=== PATIENT | male | born 1975 | race Caucasian/White ===

== ENCOUNTER 2020-07-06 10:45 | Emergency (ER) | payer OTHER, SELFPAY ==
[2020-07-06 10:56] VITALS: BP 119/86; PULSE 83; RESP 18; TEMP 36.8; O2SAT 99; BMI 25.8
--- NOTE | 2020-07-06 11:47 | ED.BACK ---
HPI - Back Pain/Injury General Chief Complaint: Back Pain/Injury Stated Complaint: R LEG PAIN Time Seen by Provider: 07/06/20 11:47 History of Present Illness HPI Narrative: Patient complains of right-sided low back pain radiating to the right foot, no numbness no weakness no changes to bowel or bladder It started after lifting some heavy pipe at work 2 weeks ago and has been waxing and waning since and yesterday pain became more severe and he comes to the ER Related Data Previous Rx's Medication Instructions Recorded cyclobenzaprine 10 mg tablet 10 mg PO TID PRN #10 tab 06/26/20 acetaminophen 500 mg PO Q8H PRN #30 tab 07/06/20 ibuprofen 600 mg PO Q6H PRN #20 tab 07/06/20 oxycodone 5 mg PO Q6H PRN #20 cap 07/06/20 prednisone 60 mg PO DAILY 4 Days #12 tab 07/06/20 Allergies Allergy/AdvReac Type Severity Reaction Status Date / Time penicillin V Allergy Unknown hives Verified 08/24/19 00:00 Penicillins [PCN] Allergy Unknown UNKNOWN Unverified 12/07/19 19:09 Review of Systems Review of Systems: Right-sided back pain radiating to right foot Negatives are no fever no chills no dizziness or weakness no headache no neck pain no chest pain, there is no numbness or weakness, there is no change to bowel or bladder there is no incontinence there is no dysuria no frequency no burning, there is no skin rash Yes all other systems are reviewed and are negative PMFSH Past Medical History Source: nursing notes reviewed Medical History (Updated 07/06/20 @ 11:53 by MATTI Wallis) C6 cervical fracture HTN (hypertension) Sciatic leg pain Social History Social History Advance Directives: No Advance Directives Information Provided: No Physical Exam Vital Signs: Vital Signs: Last Vital Signs Temp 98.2 F 07/06/20 10:56 Pulse 83 07/06/20 10:56 Resp 18 07/06/20 10:56 BP 119/86 07/06/20 10:56 Pulse Ox 99 07/06/20 10:56 Body Mass Index 25.8 General appearance uncomfortable but no acute distress A&O x3, and cooperative The head is normocephalic atraumatic The neck is supple and nontender The chest is nontender and no respiratory distress The abdomen is soft nontender The back has right lower lumbar gluteal tenderness, skin was normal, pain is easily reproduced with movement, there is no CVA tenderness or focal bony tenderness Extremities is full range of motion x4 Neuro there is no focal motor or sensory deficit, motor is 5/5 x4, gait is normal patient can walk on his toes walk on his heels and squat, sensation is intact and symmetrical Course Course Course Narrative: Patient with right-sided sciatica is treated for discomfort and advised to follow with [facility] for possible work-related injury and primary care physician No evidence of any weakness or loss of sensation no changes to bowel or bladder, no evidence of cauda equina Discharge Plan Discharge Clinical Impression: Lumbar radiculopathy Patient Disposition: Home, Self-Care Additional Instructions: Pain shooting down her leg is likely from a pinched nerve in the back possibly a herniated disc It is not clear if this is work related so follow with both were [facility] for work-related injury and your doctor Return any time for weakness, incontinence, any worse condition or any concerns Prescriptions: New oxycodone 5 mg capsule 5 mg PO Q6H PRN (Reason: pain) Qty: 20 RF: 0 prednisone 20 mg tablet 60 mg PO DAILY 4 Days Qty: 12 RF: 0 acetaminophen 500 mg tablet 500 mg PO Q8H PRN (Reason: pain) Qty: 30 RF: 0 ibuprofen 600 mg tablet 600 mg PO Q6H PRN (Reason: pain) Qty: 20 RF: 0 No Action cyclobenzaprine 10 mg tablet 10 mg PO TID PRN (Reason: muscle spasm) Qty: 10 RF: 0 Referrals: [facility] [Provider Group] - 2 days (Right-sided sciatica after lifting a pipe at work) Stand Alone Forms: Work/School Release
[2020-07-06] MEDS: Acetaminophen 325 MG TABLET 975 MG PO (11:56)
[2020-07-06] MEDS: predniSONE 20 MG TABLET 60 MG PO (11:56)
[2020-07-06] MEDS: oxyCODONE HCl Immed Release 5 MG TABLET 10 MG PO (11:56)
[2020-07-06] MEDS: Ketorolac Tromethamine 30 MG/ML VIAL IM (11:57)
[2020-07-06 12:08] VITALS: RESP 18
== END 2020-07-06 12:09 | disposition home or self-care (01) ==
PROVIDERS: Emergency Provider Emergency Medicine; PCP Nurse Practitioner Family
DX: M54.16 Radiculopathy, lumbar region (principal); M79.604 Pain in right leg; Z79.899 Other long term (current) drug therapy
CPT/HCPCS: 96372; 99284; J1885

== ENCOUNTER 2022-04-22 06:07 | Outpatient (REF) | payer BC, OTHER, SELFPAY ==
[2022-04-22 11:22] LABS: Appearance Urine Turbid; Color Urine Yellow; Glucose Urine UA Negative (Negative); Leukocyte Esterase Urine Negative (Negative); Nitrite Urine Negative (Negative); PH 5.5 (5.0-9.0); Specific Gravity - Urine 1.025 (1.005-1.025); Urine Blood Negative (Negative); Urine Ketones Negative (Negative); Urine Protein Negative (Neg-Trace)
[2022-04-22 11:24] LABS: MANUAL DIFF FLAG NO
[2022-04-22 11:44] LABS: Basophils Absolute Auto 0.1 X10*3/uL (0.0-0.2); Basophils Percent Auto 1.2 % (0-2); Eosinophils Absolute Auto 0.2 X10*3/uL (0.0-0.4); Eosinophils Percent Auto 2.3 % (0-4); Hematocrit 42.6 % (42.0-52.0); Hemoglobin 14.6 g/dl (14.0-18.0); Imm Gran Abs Auto 0.05 X10*3/uL (0.00-0.03); Imm Gran Pct Auto 0.7 % (0.0-0.4); Lymphocytes Absolute Auto 2.2 X10*3/uL (1.2-4.9); Lymphocytes Percent Auto 29.9 % (20-40); Mean Corpuscular HGB Conc 34.3 g/dl (31.0-36.0); Mean Corpuscular Hemoglobin 31.1 pg (27.0-33.0); Mean Corpuscular Volume 90.6 fL (80.0-98.0); Mean Platelet Volume 11.5 fL (9.4-12.4); Monocytes Absolute Auto 0.8 X10*3/uL (0.1-1.2); Monocytes Percent Auto 11.5 % (2-11); Neutrophils Percent Auto 54.4 % (45-73); Platelet Count 232 X10*3/uL (160-400); Red Cell Distribution Width 11.8 % (11.0-16.0); White Blood Count 7.3 X10*3/uL (4.8-10.8)
[2022-04-22 12:18] LABS: Alanine Aminotransferase 27 U/L (0-40); Albumin Level 4.3 g/dL (3.5-5.0); Alkaline Phosphatase 67 U/L (39-117); Anion Gap 11 (12-20); Aspartate Amino Transferase 19 U/L (5-37); Blood Urea Nitrogen 19 mg/dL (9-16); Calcium 9.3 mg/dL (8.4-10.2); Carbon Dioxide 29 mmol/L (22-29); Chloride 103 mmol/L (96-108); Cholesterol 176 mg/dL; Estimated Glomerular Filt Rate > 60; Glucose Fasting 106 mg/dL (60-99); HDL Cholesterol 34 mg/dL; LDL Cholesterol Calculated 113 mg/dl; Potassium 3.4 mmol/L (3.3-5.1); Sodium 140 mmol/L (135-145); TSH reflex Free T4 2.18 uIU/mL (0.32-4.0); Total Protein 6.8 g/dL (6.5-8.0); Triglycerides 147 mg/dL
== END 2022-04-22 06:08 | disposition home or self-care (01) ==
LOC: HO.HMGCLDS 06:07
PROVIDERS: PCP Nurse Practitioner Family; Visit Provider Nurse Practitioner Family
DX: I10 Essential (primary) hypertension (principal); R17 Unspecified jaundice
CPT/HCPCS: 36415; 80053; 80061; 81003; 84443; 85025

== ENCOUNTER 2022-05-15 06:03 | Outpatient (REF) | payer BC, OTHER, SELFPAY ==
[2022-05-15 12:03] LABS: Bilirubin Direct 0.4 mg/dL (0.0-0.5); Bilirubin Total 1.6 mg/dL (0.0-1.0)
[2022-05-15 12:21] LABS: HBc Num1 1.05 S/CO (0.00-0.79); HBsAGNum1 0.28 S/CO (0.00-0.99); Hepatitis A Antibody IgM 0.16 Index (0-0.79); Hepatitis B Surface Antigen Negative (Negative); ~HepC Num1 0.61 S/CO (0.00-0.79); ~Hepatitis A Antibody IgM Nonreactive (Nonreactive); ~Hepatitis B Surface Antibody NONREACTIVE (Nonreactive); ~Hepatitis C Antibody Nonreactive (Nonreactive)
[2022-05-15 14:31] LABS: HBc Num2 1.12 S/CO; HBc Num3 1.07 S/CO; Hepatitis B Core Antibody Reactive (Nonreactive)
[2022-05-17 10:38] LABS: Hepatitis B Core Antibody IgM NON-REACTIVE (NON-REACTIVE)
== END 2022-05-15 06:04 | disposition home or self-care (01) ==
LOC: HO.HMGCLDS 06:03
PROVIDERS: PCP Nurse Practitioner Family; Visit Provider Nurse Practitioner Family
DX: R17 Unspecified jaundice (principal)
CPT/HCPCS: 36415; 82247; 82248; 86704; 86705; 86706; 86709; 86803; 87340

== ENCOUNTER → 2022-05-27 12:15 | Outpatient (BNVA) | payer BC, OTHER, SELFPAY | PROVIDERS: PCP Nurse Practitioner Family; Visit Provider Physician Assistant | DX: Z13.89 Encounter for screening for other disorder (principal) ==

== ENCOUNTER 2022-05-27 12:55 | Outpatient (REF) | payer BC, OTHER, SELFPAY ==
[2022-05-27 15:23] LABS: Ferritin 550 ng/mL (20-250); Thyroid Stimulating Hormone 1.88 uIU/mL (0.32-4.0)
[2022-05-29 19:44] LABS: Hepatitis B Viral DNA Qn - cp <1.00 NOT DETECTED Log IU/mL (NOT DETECTED); Hepatitis B Viral DNA Qn-IU/mL <10 NOT DETECTED IU/mL (NOT DETECTED)
[2022-06-01 11:54] LABS: Anti Nuclear Antibody Screen NEGATIVE (NEGATIVE)
[2022-06-01 13:24] LABS: Mitochondrial Antibodies NEGATIVE (NEGATIVE)
[2022-06-02 13:13] LABS: Smooth Muscle Antibody <20 U (<20)
[2022-06-02 16:04] LABS: Endomysial IgA Antibody Negative (Negative)
[2022-06-03 13:38] LABS: Alpha 1 Anti-trypsin 120 mg/dL (83-199); Ceruloplasmin 21 mg/dL (18-36)
== END 2022-05-27 12:56 | disposition home or self-care (01) ==
LOC: HO.WFDLDS 12:55
PROVIDERS: Visit Provider Physician Assistant
DX: R74.01 Elevation of levels of liver transaminase levels (principal); R74.8 Abnormal levels of other serum enzymes; K59.09 Other constipation; D64.9 Anemia, unspecified; B19.10 Unspecified viral hepatitis B without hepatic coma; R17 Unspecified jaundice
CPT/HCPCS: 36415; 82103; 82390; 82728; 84443; 86015; 86038; 86039; 86231; 86255; 86256; 87517

== ENCOUNTER 2022-05-30 11:49 | Outpatient (REF) | payer BC, OTHER, SELFPAY ==
--- NOTE | ~2022-05-30 | XR_ITS ---
EXAMINATION: LEFT FOOT AND LEFT ANKLE CLINICAL INFORMATION: Trauma COMPARISON: None TECHNIQUE: 2 views left ankle, 3 views left foot FINDINGS: There is soft tissue swelling laterally. Is no fracture or dislocation. Mild degenerative changes are present at the first MTP joint. XR/XR ankle LT 2V IMPRESSION: Soft tissue swelling without fracture or dislocation.
--- NOTE | ~2022-05-30 | XR_ITS ---
EXAMINATION: LEFT FOOT AND LEFT ANKLE CLINICAL INFORMATION: Trauma COMPARISON: None TECHNIQUE: 2 views left ankle, 3 views left foot FINDINGS: There is soft tissue swelling laterally. Is no fracture or dislocation. Mild degenerative changes are present at the first MTP joint. XR/XR foot LT min 3V IMPRESSION: Soft tissue swelling without fracture or dislocation.
== END 2022-05-30 11:50 | disposition home or self-care (01) ==
LOC: HO.HMGCX 11:49
PROVIDERS: PCP Physician Assistant Medical; Visit Provider Physician Assistant Medical
DX: S99.912D Unspecified injury of left ankle, subsequent encounter (principal); S99.922D Unspecified injury of left foot, subsequent encounter
CPT/HCPCS: 73600; 73630

== ENCOUNTER → 2022-07-07 15:47 | Outpatient (REF) | payer BC, OTHER, SELFPAY ==
--- NOTE | 2022-07-07 15:48 | CA_ITS ---
Transthoracic Echocardiogram Patient (Last, First, Middle): Pankaj Walton, Gender: Male Date of : 1975 Age: 46 Procedure Date: 07/07/2022 Procedure Type: Transthoracic Echocardiogram Location: OP Height: 170.18 cm Weight: 77.11 kg BSA: 1.89 m2 Heart Rate: bpm BP: 118 / 70 mmHg Single Ending Machine Operator: ESSIE Referring MD: Mirza Tovar [facility] Symptoms: R01.1 - Cardiac murmur, unspecified Study Quality: Fair ECG Rhythm: Sinus Conclusions: - The left ventricular systolic function is normal. The calculated ejection fraction is 62% by biplane method. - No obvious valvular pathology seen on this study. Findings Left Ventricle Normal left ventricular cavity size. There is normal left ventricular wall thickness. The left ventricular systolic function is normal. The calculated ejection fraction is 62% by biplane method. There is no evidence of regional wall motion abnormalities. Diastolic function is normal for age. LV peak GLS -22.7%. Right Ventricle Normal right ventricular cavity size and systolic function. Atria Both atria are normal in size. Aortic Valve There is a normal trileaflet aortic valve. There is no aortic valve stenosis. There is no aortic valve regurgitation. Mitral Valve The mitral valve appears normal. There is trace mitral valve regurgitation. There is no mitral valve stenosis. Pulmonic Valve The pulmonic valve is likely normal. Tricuspid Valve There is mild tricuspid valve regurgitation. There is no evidence of pulmonary hypertension. Great Vessels The asc aorta and aortic arch are normal in size. Venous The inferior vena cava is normal in size and collapses greater than 50% with inspiration. Pericardium/Pleural There is no evidence of pericardial effusion. Prior Study Comparison No prior study available for comparison. Recommendations, Care & Conclusions No obvious valvular pathology seen on this study. Measurements 2D Linear Measurements IVSd: 0.72 0.6-0.9/0.6-1.0 cm LVIDd: 5.13 3.9-5.3/4.2-5.9 cm LVIDd Index: 2.71 2.4-3.2/2.2-3.1 cm/m2 LVIDs: 3.32 2.0-3.6 cm LVPWd: 0.95 0.7-1.1 cm LA Diam: 3.40 2.7-3.8/3.0-4.0 cm LAIDs Index: 1.80 1.5-2.3 cm/m2 LV Mass: 186.75 67-162/88-224 g LV Mass Index: 98.81 43-95/49-115 g/m2 LVOT Diam: 2.00 3.0+(-)1.3 cm 2D Systolic Function EF 4C: 59.70 >55% EF 2C: 66.00 >55% EF BiP: 61.80 >55% Mitral Valve MV Pk E: 0.99 MV PK A: 0.90 MV Decel Time: 246.00 E/A: 1.10 E'Lateral: 11.10 E'Medial: 9.03 E/E' Med: 10.90 E/E' Lat: 8.90 PHT: 72.00 MVA PHT: 3.06 Decel [place]: 4.00 Aortic Valve AoV Pk Bryant: 1.65 AoV Mn Bryant: 1.10 AoV VTI: 0.38 AoV Pk Grad: 11.00 Aov Mn Grad: 6.00 TARA Cont.VTI: 2.05 LVOT LVOT Pk Bryant: 1.02 LVOT Mn Bryant: 0.67 LVOT VTI: 0.25 LVOT Pk Grad: 4.00 LVOT Mn Grad: 2.00 LVOT Diam: 2.00 LVOT Area: 3.14 Diastolic Function MV Pk E: 0.99 MV Pk A: 0.90 E/A: 1.10 E'Medial: 9.03 E/E' Med: 10.90 E' Laterial: 11.10 E/E' Lat: 8.90 Right Ventricle TAPSE (mm): 26.90 TVS' Bryant: 14.50 Tricuspid Valve TR Pk Bryant: 2.24 TR Pk Grad: 20.00 RA Press: 3.00 RVSP: 23.00 Great Vessels Aorta Sinus of Valsalva: 3.10 2.0-3.[address] [place]: 2.08 1.7-3.4 cm Ao Asc: 2.90 2.1-3.4 cm Ao Arch: 2.30 Updated in Other Vendor System with Status of Final Herbert Vargas MD electronically signed on 07/08/2022 10:58:47 AM with status of Final
== END ==
LOC: HO.CARD 15:47
PROVIDERS: PCP Nurse Practitioner Family; Visit Provider Nurse Practitioner Family
DX: R01.1 Cardiac murmur, unspecified (principal)
CPT/HCPCS: 93306; 93356

== ENCOUNTER 2023-07-06 07:18 | Outpatient (AMB) | payer BC, OTHER, SELFPAY ==
--- NOTE | 2023-07-06 07:08 | A.OFFPC_ITS ---
Intake Visit Reasons: prescription refill Allergies penicillin V Allergy (Unknown, Verified 06/24/22 14:39) hives Penicillins [PCN] Allergy (Unknown, Verified 06/24/22 14:39) UNKNOWN Medication List - Last Reconciled 07[facility]06[facility]23 [facility] acetaminophen 500 mg PO Q8H PRN bisacodyl (Dulcolax (bisacodyl)) 10 mg (2 x 5 mg) PO ONCE 1 day ibuprofen 600 mg PO Q6H PRN lisinopril-hydrochlorothiazide 20-12.5 mg 1 tab PO DAILY 90 days polyethylene glycol 3350 (Miralax) 238 grams PO ONCE 1 day Tobacco use date assessed: 06/24/22 HPI prescription refill HPI Details HTN: Blood pressure is stable, managed with lisinopril- hydrochlorothiazide 20-12.5mg. Will order labs. Denies chest pain, shortness of breath, headache, dizziness, and blurred vision. Pt was noted to have elevated ferritin which was ordered by GI. Will recheck ferritin and iron levels. [facility] Medical History C6 cervical fracture HTN (hypertension) Physical exam Sciatic leg pain Social History Housing: House Patient Tobacco Use Status: Former Tobacco user Years Smoked: 20 years ago e-Cigarette/Vaping Use: Never Used Second Hand Smoke Exposure: No Current occupational status: employed Current occupation: [employer] Current occupational exposures/hazards: No Cognitive needs: No Hearing needs: No Vision needs: No Questionnaire Thrive Questionnaire Date Thrive assessed: 06/24/22 FRANCIA-7 AMB Questionnaire FRANCIA-7 Date FRANCIA - 7 assessed: 06/24/22 Source: Developed by Drs. Marshal Rodriguez, Sanjuana Caraballo, Jules Quiles and colleagues, with an educational rainer from [employer]. Review of Systems Const Reports as per HPI Physical exam (Primary Care) Tobacco/Smoking Status: Tobacco use Status Tobacco use date assessed 06/24/22 06/24/22 14:43 Patient Tobacco Use Status Former Tobacco user 06/24/22 14:33 e-Cigarette/Vaping Use Never Used 06/24/22 14:33 Thrive Assessment: Date of Thrive Assessment Date Thrive assessed 06/24/22 06/24/22 14:47 Const General: cooperative Orientation/consciousness: patient oriented x3 Neuro General: patient oriented x3 Psych Appearance: grossly normal Mental Status: mental status grossly normal Speech and movement: Clear speech present Affect: normal affect Attitude: cooperative Thought process: Normal thought process present Thought content: Normal thought content present Insight: Good insight present (Psych) Judgement: Good judgement present (Psych) Telehealth Telehealth Location of provider rendering services: practice address Location of patient: address on file Patient Identification confirmed using: Name, : Yes Telehealth method: video Patient verbally consented to treatment: Yes Patient verbally consented to billing insurance company: Yes Patient informed of any privacy concerns related to visit: Yes Minutes spent on Phone/Video with Pt.: 10 Assessment and Plan Assessment & Plan (1) Elevated ferritin: Code(s): R79.89 - Other specified abnormal findings of blood chemistry Plan: rechecking ferritin and will check iron (2) HTN (hypertension): Code(s): I10 - Essential (primary) hypertension Plan: ordering labs, BP stable. Plan The patient agreed to the use of a senior medical transcriptionist for this encounter. Scribed for LUC Perry by Chela Love senior medical transcriptionist, on 07/06/2023 at 07:05 EST. Orders: Orders Complete Blood Count Auto Diff Today I10 - Essential (primary) hypertension Comprehensive Trufant. Panel Fast Today I10 - Essential (primary) hypertension TSH reflex Free T4 Today I10 - Essential (primary) hypertension IRON PROFILE Today R79.89 - Other specified abnormal findings of blood chemistry Ferritin Today R79.89 - Other specified abnormal findings of blood chemistry UA CC w/rflx Micro + Cult Today I10 - Essential (primary) hypertension Lipid Panel Today I10 - Essential (primary) hypertension Prostate Specific Antigen Scr Today Z12.5 - Encounter for screening for malignant neoplasm of prostate Medications: Refilled lisinopril-hydrochlorothiazide 20-12.5 mg 1 tab PO DAILY 90 tabs 3RF 90 days Coding Level of Care Code Tele Est Pt Level 3 (45264) Diagnoses Elevated ferritin R79.89 HTN (hypertension) I10
== END 2023-07-06 09:17 | disposition home or self-care (01) ==
PROVIDERS: PCP Nurse Practitioner Family; Visit Provider Nurse Practitioner Family
DX: R79.89 Other specified abnormal findings of blood chemistry (principal); I10 Essential (primary) hypertension
CPT/HCPCS: 99213

== ENCOUNTER 2023-10-28 12:43 | Outpatient (AMB) | payer BC, OTHER, SELFPAY ==
[2023-10-28 12:48] VITALS: BP 118/72; PULSE 62; O2SAT 97; BMI 28.7
--- NOTE | 2023-10-28 12:48 | A.OFFPC_ITS ---
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 Labs were already ordered. Cologuard is up to date. Due for PSA, will order. Denies dribbling with urination, weak stream, and frequent nocturia. [facility] Medical History Physical exam C6 cervical fracture HTN (hypertension) Sciatic leg pain Social History Housing: House Patient Tobacco Use Status: Former Tobacco user Years Smoked: 20 years ago e-Cigarette/Vaping Use: Never Used Second Hand Smoke Exposure: No Current occupational status: employed Current occupation: [employer] Current occupational exposures/hazards: No Cognitive needs: No Hearing needs: No Vision needs: No Questionnaire PHQ-9 Over the last 2 weeks, how often have you been bothered by any of the following problems? 1. Little interest or pleasure in doing things: not at all 2. Feeling down, depressed, or hopeless: not at all 3. Trouble falling or staying asleep, or sleeping too much: not at all 4. Feeling tired or having little energy: not at all 5. Poor appetite or overeating: not at all 6. Feeling bad about yourself - or that you are a failure or have let yourself or your family down: not at all 7. Trouble concentrating on things, such as reading the newspaper or watching television: not at all 8. Moving or speaking so slowly that other people could have noticed. Or the opposite - being so fidgety or restless that you have been moving around a lot more than usual: not at all 9. Thoughts that you would be better off or of hurting yourself in some way: not at all Total score: 0 Depression Screening Interpretation: Negative Depression Screening Done: Yes 86447 - PHQ-9 Billing: Yes Source: Developed by Drs. Marshal Rodriguez, Sanjuana Caraballo, Jules Quiles and colleagues, with an educational rainer from [employer]. Thrive Questionnaire Date Thrive assessed: 10/28/23 I am a: Patient What is your living situation today?: I have a steady place to live Within the past 12 months, did the food you bought not last and you didn't have the money to get more?: Never true Within the past 12 months, did you worry whether your food would run out before you got money to buy more?: Never true Do you have trouble paying for medicines?: No Do you have trouble getting transportation to medical appointments?: No Do you have trouble paying your heating and electricity bill?: No Do you have trouble taking care of your child, family member or friend?: No Do you have trouble with day-to-day activities such as bathing, preparing meals, shopping, managing finances, etc.?: No Are you currently unemployed and looking for a job?: No Are you interested in more education?: No Please select the resources that you would like help with: Housing/Long Term Currently or been in a relationship where the following occur: I choose not to answer THRIVE Score: 0 AUDIT C Alcohol Use Questionnaire (AUDIT-C) 1. How often do you have a drink containing alcohol?: Monthly or less 2. How many drinks containing alcohol do you have on a typical day when you are drinking?: 1 or 2 3. How often do you have six or more drinks on one occasion?: Never Total Score: 1 Score Reviewed/Action Taken: Yes FRANCIA-7 AMB Questionnaire FRANCIA-7 Date FRANCIA - 7 assessed: 10/28/23 Feeling nervous, anxious, or on edge: 0 = Not at all Not being able to stop or control worryin = Not at all Worrying too much about different things: 0 = Not at all Trouble relaxin = Not at all Being so restless that it is hard to sit still: 0 = Not at all Becoming easily annoyed or irritable: 0 = Not at all Feeling afraid as if something awful might happen: 0 = Not at all Total FRANCIA-7 score (0-4 normal; 5-9 mild; 10-14 moderate; 15-21 severe): 0 Source: Developed by Drs. Marshal Rodriguez, Sanjuana Caraballo, Jules Quiles and colleagues, with an educational rainer from [employer]. FRANCIA-7 Assessment Billing FRANCIA-7 Assessment Tool: FRANCIA-7 Assessment 53585 Review of Systems Const Denies chills and Denies fever(s) Eyes Denies blurry vision ENT Denies vertigo, Denies dizziness and Denies sore throat Card Denies chest pain at rest, Denies chest pain with activity, Denies diaphoresis, Denies dyspnea and Denies dyspnea on exertion Resp Denies cough, Denies dyspnea, Denies dyspnea on exertion and Denies wheezing GI Denies abdominal pain, Denies melena, Denies hematochezia, Denies constipation, Denies diarrhea and Denies loose stools Denies hematuria Musc Denies numbness and Denies tingling Skin/Breast Denies lesions Neuro Denies vertigo, Denies dizziness, Denies numbness and Denies tingling Psych Denies anxiety, Denies depression, Denies homicidal ideation, Denies suicidal i deation and Denies other (substance abuse) Aller/Immun Denies wheezing Physical exam (Primary Care) Vital Signs: Last Vital Signs Pulse 62 10/28/23 12:48 BP 118/72 10/28/23 12:48 Pulse Ox 97 10/28/23 12:48 Oxygen Delivery Method Room Air 10/28/23 12:48 BMI result Body Mass Index 28.7 Tobacco/Smoking Status: Tobacco use Status Tobacco use date assessed 10/28/23 10/28/23 12:57 Patient Tobacco Use Status Former Tobacco user 10/28/23 12:57 e-Cigarette/Vaping Use Never Used 10/28/23 12:57 PHQ-9: PHQ-9 Score PHQ-9: Total score 0 10/28/23 12:57 Depression Screening Interpretation: Negative Thrive Assessment: Date of Thrive Assessment Date Thrive assessed 10/28/23 10/28/23 12:57 Currently or been in a relationship where the following occur: I choose not to answer Const General: cooperative Nutritional Appearance: well nourished Orientation/consciousness: patient oriented x3 HENMT Head: Yes normal to inspection, Yes normocephalic and Yes atraumatic Ears: TM's normal bilaterally Eyes General: appearance normal, both eyes and all related structures Alignment and Position: alignment normal and position normal Neck Neck: Yes normal visual inspection and Yes no lymphadenopathy Thyroid: Thyroid normal Resp Effort & Inspection: normal respiratory effort Auscultation: clear to auscultation bilaterally Cardio Rate: regular rate Rhythm: regular rhythm Heart sounds: S1 normal heart sound present, S2 normal heart sound present and no murmurs GI Palpation (GI): Soft to palpation and nontender Auscultation: normal bowel sounds Male General Exam: Yes normal external exam Penis: normal penis Scrotum: scrotum normal, testes descended bilaterally and no inguinal hernias Testes: no testicular mass Skin Rashes: no rashes Neuro General: patient oriented x3, moves all extremities, no focal motor deficits and deep tendon reflexes 2+ bilaterally Romberg Test: Negative Psych Appearance: grossly normal Mental Status: mental status grossly normal Speech and movement: Normal speech and movement present Affect: normal affect Attitude: cooperative Thought process: Normal thought process present Thought content: Normal thought content present Insight: Good insight present (Psych) Judgement: Good judgement present (Psych) Assessment and Plan Assessment & Plan (1) Physical exam: Code(s): Z00.00 - Encounter for general adult medical examination without abnormal findings Plan The patient agreed to the use of a medical office professional instructor for this encounter. Scribed fo KANNAN Arias-BC by Chela Love medical office professional instructor, on 10/28/2023 at 13:30 EST. Coding Level of Care Code Est Pt Prev Care 40-64y(91574) Diagnoses Physical exam Z00.00 Additional Codes FRANCIA-7 Assessment Billing - FRANCIA-7 Assessment Tool: FRANCIA-7 Assessment 29396 ([id number])
== END 2023-10-28 13:49 | disposition home or self-care (01) ==
PROVIDERS: Visit Provider Nurse Practitioner Family
DX: Z00.00 Encounter for general adult medical examination without abnormal findings (principal)
CPT/HCPCS: 99396

== ENCOUNTER 2024-02-09 08:02 | Outpatient (AMB) | payer BC, OTHER, SELFPAY ==
--- NOTE | 2024-02-09 08:06 | MHC.OFFWIV ---
Intake Vital Signs 02/09/24 08:07 Height 5 ft 7 in Weight 177 lb BMI 27.7 BP 120/90 H Blood Pressure Location Lt brachial Position Sitting Pulse 65 Pulse Source Pulse Oximeter Pulse Oximetry (%) 99 Oxygen Delivery Method Room Air Intake Visit Reasons: EP ? pink eye Intake Note: Patient here for right eye irritation,red and teary that started yesterday. 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 Patient Tobacco Use Status: Former Tobacco user Allergies penicillin V Allergy (Unknown, Verified 02/09/24 08:08) hives Penicillins [PCN] Allergy (Unknown, Verified 02/09/24 08:08) UNKNOWN Do you need a note to return to daycare/school/sports/work: No HPI HPI Comments History of Present Illness Details The patient is a 48-year-old male presenting with an issue of eye irritation and a suspected corneal abrasion. The patient reports experiencing a cold a couple of weeks prior, which affected him and some colleagues at work. 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 The patient occasionally wears glasses, although they should be worn consistently. Approximately the day before the visit, after work, he began to feel as if dust had entered his right eye. The sensation initially dissipated, but later persisted, resembling the feeling of an eyelash being stuck. Attempts to rinse the eye with water in the shower led to worsening symptoms, including redness and non-itchy irritation, accompanied by lacrimation. Overnight, the condition escalated with increased discharge, though the eye was not completely crusted shut upon waking. He denies changes in his vision Following self-assessment, he suspects a scratched cornea due to the persistent feeling of a foreign body in his eye, redness, and increased tearing. Home interventions included using water to flush the eye but did not provide relief. The progression led him to seek medical evaluation due to the persisting discomfort and concern of corneal abrasion. [facility] Medical History Physical exam C6 cervical fracture HTN (hypertension) Sciatic leg pain Social History Housing: House Patient Tobacco Use Status: Former Tobacco user Years Smoked: 20 years ago e-Cigarette/Vaping Use: Never Used Second Hand Smoke Exposure: No Current occupational status: employed Current occupation: [employer] Current occupational exposures/hazards: No Cognitive needs: No Hearing needs: No Vision needs: No Review of Systems Const All systems reviewed & are unremarkable except as noted in HPI and below Physical Exam Const General: cooperative, healthy appearing, comfortable, no acute distress and well developed Orientation/consciousness: patient oriented x3 Limitations: no limitations HEENT Head: Yes normal to inspection Eyes Alignment and Position: alignment normal and position normal Periorbital: periorbital findings normal Eyelids: Yes eyelids normal Conjunctivae: conjunctival abnormal right conjunctival injection Corneas: corneas abnormal on the right abrasion (small abrasion at 12 o'clock and larger one at 6 o'clock) curved and fluorescein used Pupils: Equal, round and reactive pupils present EOM: EOMs intact bilaterally Neck Neck: Yes normal visual inspection and Yes supple Neuro General: patient oriented x3 Cranial nerves: Yes Equal, round and reactive pupils present Office Procedures Fluorescein eye exam Details: Applied 2 drops tetracaine and dye, noted 2 corneal abrasions as above in PE Assessment & Plan Assessment & Plan (1) Corneal abrasion, right: Code(s): S05.01XA - Injury of conjunctiva and corneal abrasion without foreign body, right eye, initial encounter Qualifiers: Encounter type: initial encounter Qualified Code(s): S05.01XA - Injury of conjunctiva and corneal abrasion without foreign body, right eye, initial encounter Plan: - Prescribe erythromycin ophthalmic ointment; to be applied to the lower lid four times a day for ten days to promote healing and prevent infection. The patient is instructed on proper application technique to ensure efficacy. - Advise on the importance of monitoring for changes in visual acuity and instruct to seek evaluation by an endless track vehicle supervisor if vision changes occur. Referral options are discussed, including a specific endless track vehicle supervisor if required. Medications: New erythromycin Apply to left eye 4 times a day while awake 0.5 inches ophthalmic-Right QID 3.5 grams 0RF Coding Level of Care Code Est Pt Level 3 (37146) Diagnoses Abrasion of right cornea, initial encounter S05.01XA Encounter type: initial encounter
[2024-02-09 08:07] VITALS: BP 120/90; PULSE 65; O2SAT 99; BMI 27.7
== END 2024-02-09 09:02 | disposition home or self-care (01) ==
PROVIDERS: PCP Nurse Practitioner Family; Visit Provider Physician Assistant
DX: S05.01XA Injury of conjunctiva and corneal abrasion without foreign body, right eye, initial encounter (principal)

== ENCOUNTER 2024-08-07 06:04 | Outpatient (REF) | payer BC, SELFPAY ==
--- OUTSIDE RECORDS SUMMARY | 2024-08-07 06:06 | XMS_ITS | Clinical Summary ---
Author Organization [facility] Address [address] [place] [address] Care Team Providers Care Nurse Advocate Name Role Phone Unavailable Primary Care Provider Unavailabl e Social History Tobacco Use Types Packs/Day Years Used Date Smoking Tobacco: Never Assessed Sex and Gender Information Value Date Recorded Sex Assigned at Not on file Legal Sex Male 4:07 PM EDT Gender Identity Not on file Sexual Orientation Not on file Last Filed Vital Signs Vital Sign Reading Time Taken Comments Blood Pressure 130/86 11/10/2016 2:27 PM EDT Pulse 80 11/10/2016 2:27 PM EDT Temperature - - Respiratory Rate - - Oxygen Saturation - - Inhaled Oxygen Concentration - - Weight 76.7 kg (169 lb) 11/10/2016 2:27 PM EDT Height 170.2 cm (5' 7 ) 11/10/2016 2:27 PM EDT Body Mass Index 26.47 11/10/2016 2:27 PM EDT Plan of Treatment Health Maintenance Due Date Last Done Comments Hepatitis C Screening 1975 DTaP/Tdap/Td (1 - Tdap) 07/21/1991 Hep B (1 of 3 - 19+ 3-dose series) 1992 Pneumococcal 50+ years (1 of 1 - PCV) 07/21/2023 Zoster (Shingrix) (1 of 2) 07/21/2023 COVID-19 Vaccine ( - 2023-2 5 season) 2023 Influenza (#1) 2023 HPV Vaccine Aged Out No longer eligi ble based on patient's age to complete this topic Hep A Aged Out No longer eligi ble based on patient's age to complete this topic Hib Aged Out No longer eligi ble based on patient's age to complete this topic Meningococcal ACWY Aged Out No longer eligible based on patient's age to complete this topic
[2024-08-07 10:10] LABS: MANUAL DIFF FLAG NO
[2024-08-07 10:31] LABS: Basophils Absolute Auto 0.1 X10*3/uL (0.0-0.2); Basophils Percent Auto 1.3 % (0-2); Eosinophils Absolute Auto 0.3 X10*3/uL (0.0-0.4); Eosinophils Percent Auto 3.8 % (0-4); Hematocrit 45.2 % (42.0-52.0); Hemoglobin 15.4 g/dl (14.0-18.0); Imm Gran Abs Auto 0.04 X10*3/uL (0.00-0.03); Imm Gran Pct Auto 0.5 % (0.0-0.4); Lymphocytes Absolute Auto 2.3 X10*3/uL (1.2-4.9); Lymphocytes Percent Auto 29.3 % (20-40); Mean Corpuscular HGB Conc 34.1 g/dl (31.0-36.0); Mean Corpuscular Hemoglobin 31.2 pg (27.0-33.0); Mean Corpuscular Volume 91.5 fL (80.0-98.0); Mean Platelet Volume 11.5 fL (9.4-12.4); Monocytes Absolute Auto 0.8 X10*3/uL (0.1-1.2); Monocytes Percent Auto 10.1 % (2-11); Neutrophils Absolute Auto 4.3 x10*3/uL (2.0-8.3); Platelet Count 244 X10*3/uL (160-400); Red Blood Count 4.94 X10*6/uL (4.60-5.80); White Blood Count 7.8 X10*3/uL (4.8-10.8)
[2024-08-07 10:46] LABS: Appearance Urine Turbid; Color Urine Yellow; Glucose Urine UA Negative (Negative); Leukocyte Esterase Urine Negative (Negative); Nitrite Urine Negative (Negative); PH 5.5 (5.0-9.0); Specific Gravity - Urine 1.025 (1.005-1.025); Urine Blood Negative (Negative); Urine Ketones Trace mg/dL (Negative); Urine Protein Negative (Neg-Trace)
[2024-08-07 11:03] LABS: Prostate Specific Antigen Scr 0.96 ng/mL (<0.05-4.0)
[2024-08-07 11:05] LABS: Alanine Aminotransferase 34 U/L (0-40); Albumin Level 4.3 g/dL (3.5-5.0); Alkaline Phosphatase 63 U/L (39-117); Anion Gap 11 (12-20); Aspartate Amino Transferase 24 U/L (5-37); Bilirubin Total 1.1 mg/dL (0.0-1.0); Blood Urea Nitrogen 23 mg/dL (9-16); Calcium 9.2 mg/dL (8.4-10.2); Carbon Dioxide 28 mmol/L (22-29); Chloride 104 mmol/L (96-108); Cholesterol 217 mg/dL (<200); Estimated Glomerular Filt Rate > 60; Glucose Fasting 100 mg/dL (60-99); HDL Cholesterol 43 mg/dL (>40); LDL Cholesterol Calculated 139 mg/dL (<100); Potassium 3.5 mmol/L (3.3-5.1); Sodium 139 mmol/L (135-145); Total Protein 7.4 g/dL (6.5-8.0); Triglycerides 177 mg/dL (<150)
== END 2024-08-07 06:05 | disposition home or self-care (01) ==
LOC: HO.HMGCLDS 06:04
PROVIDERS: PCP Nurse Practitioner Family; Visit Provider Nurse Practitioner Family
DX: I10 Essential (primary) hypertension (principal); Z12.5 Encounter for screening for malignant neoplasm of prostate
CPT/HCPCS: 36415; 80053; 80061; 81003; 84153; 84443; 85025

== ENCOUNTER 2024-11-25 06:38 | Outpatient (REF) | payer BC, SELFPAY ==
--- OUTSIDE RECORDS SUMMARY | 2024-11-25 06:41 | XMS_ITS | Clinical Summary ---
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
[2024-11-25 11:33] LABS: Alanine Aminotransferase 33 U/L (0-40); Albumin Level 4.4 g/dL (3.5-5.0); Alkaline Phosphatase 59 U/L (39-117); Anion Gap 11 (12-20); Aspartate Amino Transferase 31 U/L (5-37); Blood Urea Nitrogen 16 mg/dL (9-16); Calcium 9.0 mg/dL (8.4-10.2); Carbon Dioxide 29 mmol/L (22-29); Chloride 103 mmol/L (96-108); Cholesterol 104 mg/dL (<200); Estimated Glomerular Filt Rate > 60; HDL Cholesterol 34 mg/dL (>40); Potassium 3.5 mmol/L (3.3-5.1); Sodium 139 mmol/L (135-145); Total Protein 6.8 g/dL (6.5-8.0); Triglycerides 113 mg/dL (<150)
== END 2024-11-25 06:39 | disposition home or self-care (01) ==
LOC: HO.HMGCLDS 06:38
PROVIDERS: PCP Nurse Practitioner Family; Visit Provider Nurse Practitioner Family
DX: E78.5 Hyperlipidemia, unspecified (principal)
CPT/HCPCS: 36415; 80053; 80061

== ENCOUNTER 2024-11-28 08:30 | Outpatient (AMB) | payer BC, SELFPAY ==
[2024-11-28 08:36] VITALS: BP 120/78; PULSE 71; RESP 16; TEMP 36.7; O2SAT 99; BMI 27.6
--- NOTE | 2024-11-28 08:36 | A.OFFPC_ITS ---
Vital Signs 11/28/24 08:36 Height 5 ft 7 in Weight 176 lb BMI 27.6 BP 120/78 Blood Pressure Location Lt brachial Position Sitting Respiration 16 Pulse 71 Pulse Source Pulse Oximeter Temp 98.1 F Temp Source Oral Pulse Oximetry (%) 99 Oxygen Delivery Method Room Air Intake Visit Reasons: PE Marketing Segment Manager Required: No Accompanied by: Self / Same As Patient Allergies penicillin V Allergy (Unknown, Verified 11/28/24 08:37) hives Penicillins (PCN) Allergy (Unknown, Verified 11/28/24 08:37) UNKNOWN Tobacco use date assessed: 11/28/24 Dental Screening Dental Screen Date: 11/28/24 Did you have a dental visit in the last 12 months?: Yes Did you have a dental problem in the last 6 months where you did not have access to dental care?: No Was dental information given to patient?: Patient has dentist HPI PE HPI Details History of Present Illness The patient is a 49-year-old male presenting for a physical examination. He is currently on a statin and reports significant dietary changes, including reducing carbohydrate intake and adopting a gluten-free diet, which have resulted in a substantial decrease in cholesterol levels, particularly LDL cholesterol. He feels much better with these dietary changes, noting a reduction in inflammatory foods and improved portion control. The patient denies experiencing any chest pain, dyspnea, abdominal pain, hematochezia, constipation, or diarrhea. He also denies any suicidal or homicidal ideation. His colonoscopy and PSA screenings are up to date, and he is advised to continue his current medications, including antihypertensive and statin therapy. Health Maintenance - Dietary modification: Reduced carbohyd rates, gluten-free diet - Screening: Colonoscopy up to date - Screening: PSA up to date Social History - Nutrition: Significant dietary changes with reduced carbohydrates and gluten- free diet Review of Systems - Cardiovascular: Denies chest pain, dys pnea - Gastrointestinal: Denies abdominal kojo n, hematochezia, constipation, diarrhea - Psychiatric: Denies suicidal ideation, homicidal ideation Physical Exam General: Cooperative, healthy appearing, comfortable, no acute distress and well developed Orientation: Patient oriented x3 Limitations: No limitations Head: Normal to inspection Ears: Hearing grossly normal bilaterally Nose: Normal external nose present Face and sinus: Normal facial exam Eyes: Appearance normal, both eyes and all related structures Neck: Normal visual inspection and Yes full ROM Respiratory: Normal respiratory effort and able to speak in complete sentences. Clear to auscultation bilaterally Cardiovascular: Regular rate and rhythm. Normal S1 and S2, faint systolic murmur GI: Normal to inspection. Soft to palpation and nontender : testicles without masses/lesions and no hernias appreciated Skin: No rashes or lesions noted Neuro: Patient oriented x3 Extremities: Normal to inspection Results Plan 1. Hyperlipidemia The patient will continue on his current statin therapy, which has been effective in reducing cholesterol levels. Dietary modifications, including reduced carbohydrate intake and a gluten-free diet, will be maintained to support cholesterol management. 2. Hypertension The patient will continue his current antihypertensive medication regimen. Regular follow-up is planned to monitor blood pressure control. Discussion Notes I discussed with the patient the importance of continuing his current medication regimen, including statins and antihypertensives, to manage his hyperlipidemia and hypertension effectively. We also reviewed his dietary changes, which have positively impacted his cholesterol levels, and emphasized the need for ongoing adherence to these lifestyle modifications. Follow-up is scheduled for one year to reassess his condition and adjust treatment as necessary. Patient Instructions - Continue taking all prescribed medicat ions, including statins and blood pressure medications. - Maintain current dietary changes, focu sing on reduced carbohydrates and a gluten-free diet. - Schedule a follow-up appointment in on . [facility] Medical History Physical exam C6 cervical fracture HTN (hypertension) Sciatic leg pain Social History Housing: [place] Patient Tobacco Use Status: Former Tobacco user Years Smoked: 20 years ago e-Cigarette/Vaping Use: Never Used Second Hand Smoke Exposure: No Current occupational status: employed Current occupation: [employer] Current occupational exposures/hazards: No Cognitive needs: No Hearing needs: No Vision needs: No Questionnaire PHQ-9 Over the last 2 weeks, how often have you been bothered by any of the following problems? 1. Little interest or pleasure in doing things: not at all 2. Feeling down, depressed, or hopeless: not at all 3. Trouble falling or staying asleep, or sleeping too much: not at all 4. Feeling tired or having little energy: not at all 5. Poor appetite or overeating: not at all 6. Feeling bad about yourself - or that you are a failure or have let yourself or your family down: not at all 7. Trouble concentrating on things, such as reading the newspaper or watching television: not at all 8. Moving or speaking so slowly that other people could have noticed. Or the opposite - being so fidgety or restless that you have been moving around a lot more than usual: not at all 9. Thoughts that you would be better off or of hurting yourself in some way: not at all Total score: 0 Depression Screening Interpretation: Negative Depression Screening Done: Yes 31574 - PHQ-9 Billing: Yes Source: Developed by Drs. Marshal Rodriguez, Sanjuana Caraballo, Jules Quiles and colleagues, with an educational rainer from [employer]. Thrive Questionnaire Date Thrive assessed: 10/28/23 I am a: Patient What is your living situation today?: I have a steady place to live Within the past 12 months, did the food you bought not last and you didn't have the money to get more?: Never true Within the past 12 months, did you worry whether your food would run out before you got money to buy more?: I choose not to answer this question Do you have trouble paying for medicines?: No Do you have trouble getting transportation to medical appointments?: No Do you have trouble paying your heating and electricity bill?: No Do you have trouble taking care of your child, family member or friend?: No Do you have trouble with day-to-day activities such as bathing, preparing meals, shopping, managing finances, etc.?: No Are you currently unemployed and looking for a job?: No Are you interested in more education?: No Please select the resources that you would like help with: None Currently or been in a relationship where the following occur: No concerns reported THRIVE Score: 0 AUDIT C Alcohol Use Questionnaire (AUDIT-C) 1. How often do you have a drink containing alcohol?: Monthly or less 2. How many drinks containing alcohol do you have on a typical day when you are drinking?: 1 or 2 3. How often do you have six or more drinks on one occasion?: Never Total Score: 1 FRANCIA-7 AMB Questionnaire FRANCIA-7 Date FRANCIA - 7 assessed: 11/28/24 Feeling nervous, anxious, or on edge: 0 = Not at all Not being able to stop or control worryin = Not at all Worrying too much about different things: 0 = Not at all Trouble relaxin = Not at all Being so restless that it is hard to sit still: 0 = Not at all Becoming easily annoyed or irritable: 0 = Not at all Feeling afraid as if something awful might happen: 0 = Not at all Total FRANCIA-7 score (0-4 normal; 5-9 mild; 10-14 moderate; 15-21 severe): 0 Source: Developed by Drs. Marshal Rodriguez, Sanjuana Caraballo, Jules Quiles and colleagues, with an educational rainer from [employer]. FRANCIA-7 Assessment Billing FRANCIA-7 Assessment Tool: FRANCIA-7 Assessment 77895 Physical exam (Primary Care) Vital Signs: Last Vital Signs Temp 98.1 F 11/28/24 08:36 Pulse 71 11/28/24 08:36 Resp 16 11/28/24 08:36 BP 120/78 11/28/24 08:36 Pulse Ox 99 11/28/24 08:36 Oxygen Delivery Method Room Air 11/28/24 08:36 BMI result Body Mass Index 27.6 Tobacco/Smoking Status: Tobacco use Status Tobacco use date assessed 11/28/24 11/28/24 08:41 Patient Tobacco Use Status Former Tobacco user 11/28/24 08:41 e-Cigarette/Vaping Use Never Used 11/28/24 08:41 PHQ-9: PHQ-9 Score PHQ-9: Total score 0 11/28/24 08:41 Depression Screening Interpretation: Negative Thrive Assessment: Date of Thrive Assessment Date Thrive assessed 10/28/23 11/28/24 08:41 Currently or been in a relationship where the following occur: No concerns reported Coding Level of Care Code Est Pt Prev Care 40-64y(00043) Diagnoses Physical exam Z00.00 Dyslipidemia E78.5 HTN (hypertension) I10 Additional Codes FRANCIA-7 Assessment Billing - FRANCIA-7 Assessment Tool: FRANCIA-7 Assessment 52902 ([id number]) PHQ-9 - 82609 - PHQ-9 Billing: Yes ([id number]) Assessment & Plan Assessment & Plan (1) Physical exam: Code(s): Z00.00 - Encounter for general adult medical examination without abnormal findings Category: Medical (2) Dyslipidemia: Code(s): E78.5 - Hyperlipidemia, unspecified Category: Medical (3) HTN (hypertension): Code(s): I10 - Essential (primary) hypertension Category: Medical Plan . Medications: Refilled atorvastatin 10 mg PO BEDTIME 90 tabs 4RF 90 days lisinopril-hydrochlorothiazide 20-12.5 mg 1 tab PO DAILY 90 tabs 4RF 90 days
--- OUTSIDE RECORDS SUMMARY | 2024-11-28 09:34 | XMS_ITS | Clinical Summary ---
Author Organization [facility] Address [address] [place] [address] Care Team Providers Care Tubular Stock Glass Bulb Machine Former Name Role Phone Unavailable Primary Care Provider [...]
== END 2024-11-28 09:05 | disposition home or self-care (01) ==
LOC: HO.HMCC 08:31
PROVIDERS: PCP Nurse Practitioner Family; Visit Provider Nurse Practitioner Family
DX: Z00.00 Encounter for general adult medical examination without abnormal findings (principal); E78.5 Hyperlipidemia, unspecified; I10 Essential (primary) hypertension

== ENCOUNTER → 2024-11-28 08:30 | Outpatient (BNVA) | payer BC, SELFPAY | PROVIDERS: PCP Nurse Practitioner Family; Visit Provider Nurse Practitioner Family | DX: Z00.00 Encounter for general adult medical examination without abnormal findings (principal); E78.5 Hyperlipidemia, unspecified; I10 Essential (primary) hypertension | CPT/HCPCS: 96127 ==